=== PATIENT | male | born 1960 | race Two or more races ===

== ENCOUNTER 2020-07-13 12:28 | Emergency (ER) | payer SELFPAY ==
[2020-07-13] MEDS ORDERED: ONDANSETRON 4 MG TAB.RAPDIS PO ONE (13:33)
--- NOTE | 2020-07-13 13:35 | ER Document Report ---
ED Medical Screen (RME) - General Chief Complaint: Nausea/Vomiting Stated Complaint: NAUSEA VOMITING Time Seen by Provider: 07/13/20 13:25 Mode of Arrival: Ambulatory Information source: Patient - HPI Patient complains to provider of: Nausea, sore throat, vomiting Notes: 07/13/20 13:33 Patient with complaints of having some nausea for the last few days. He states that when he bends over he feels like he vomits a little bit and then ends up vomiting completely. Also been having a sore throat. He denies any fever. He does complain of some generalized body aches. No cough. No chest pain or shortness of breath. No prior abdominal surgeries. Patient denies smoking, drinks beer, denies drug use. No known Covid exposure. No abdominal pain cur rently. No fever. Patient also states that he noticed his urine was red but is not sure if it is from the fruit juice that he was drinking. Exam: Nontoxic, no distress. Lungs clear and equal throughout. Heart sounds normal. Mild erythema to the posterior pharynx with no unilateral swelling. No focal abdominal tenderness. An initial examination was made on the patient as part of the triage process, and it was determined a more comprehensive evaluation was necessary. Initial orders were placed and patient was transferred to another provider in the ED who assumed care and finished evaluation and plan. Physical Exam - Vital signs Vitals: Temp Pulse Resp BP Pulse Ox 98.6 F 92 16 153/93 H 99 07/13/20 12:36 07/13/20 12:36 07/13/20 12:36 07/13/20 12:36 07/13/20 12:36 Course - Vital Signs Vital signs: Temp Pulse Resp BP Pulse Ox 98.6 F 92 16 153/93 H 99 07/13/20 12:36 07/13/20 12:36 07/13/20 12:36 07/13/20 12:36 07/13/20 12:36
[2020-07-13 14:19] LABS: ABSOLUTE LYMPHOCYTES (AUTO) 0.9 10^3/uL (0.5-4.7); ABSOLUTE MONOCYTES (AUTO) 0.3 10^3/uL (0.1-1.4); ABSOLUTE NEUT (AUTO) 5.8 10^3/uL (1.7-8.2); BASOPHILS % (AUTO) 0.4 % (0-2); EOSINOPHILS % (AUTO) 0.1 % (0-6); HEMATOCRIT 48.8 % (37.9-51.0); HEMOGLOBIN 16.7 g/dL (13.5-17.0); LYMPHOCYTES % (AUTO) 12.7 % (13-45); MEAN CORPUSCULAR HEMOGLOBIN 31.7 pg (27.0-33.4); MEAN CORPUSCULAR HGB CONC 34.2 g/dL (32.0-36.0); MEAN CORPUSCULAR VOLUME 93 fl (80-97); MONOCYTES % (AUTO) 4.9 % (3-13); PLATELET COUNT 166 10^3/uL (150-450); RED BLOOD COUNT 5.27 10^6/uL (4.35-5.55); SEGMENTED NEUTROPHILS % (AUTO) 81.9 % (42-78); TOTAL CELLS COUNTED % (AUTO) 100 %
[2020-07-13 14:34] LABS: APPEARANCE,URINE CLEAR; BILIRUBIN,URINE NEGATIVE (NEGATIVE); COLOR,URINE YELLOW; GLUCOSE, URINE NEGATIVE (NEGATIVE); KETONES,URINE NEGATIVE (NEGATIVE); LEUKOCYTE ESTERASE,URINE NEGATIVE (NEGATIVE); NITRITE,URINE NEGATIVE (NEGATIVE); PROTEIN,URINE 30 mg/dL (NEGATIVE); URINE SPECIFIC GRAVITY 1.021; UROBILINOGEN,URINE NEGATIVE mg/dL (<2.0)
[2020-07-13 14:42] LABS: ALBUMIN 4.4 g/dL (3.5-5.0); ALKALINE PHOSPHATASE 47 U/L (38-126); ASPARTATE AMINO TRANSFERASE 57 U/L (17-59); BILIRUBIN,DIRECT 0.1 mg/dL (0.0-0.4); BILIRUBIN,TOTAL 1.6 mg/dL (0.2-1.3); BLOOD UREA NITROGEN 30 mg/dL (7-20); CALCIUM 11.5 mg/dL (8.4-10.2); CHLORIDE 88 mmol/L (98-107); GLUCOSE 210 mg/dL (75-110); POTASSIUM 4.2 mmol/L (3.6-5.0); TOTAL PROTEIN 7.4 g/dL (6.3-8.2)
[2020-07-13 14:51] LABS: ANION GAP 8 (5-19)
[2020-07-13 14:56] LABS: CARBON DIOXIDE 42 mmol/L (22-30)
[2020-07-13 15:46] LABS: VENOUS BLOOD BASE EXCESS 14.7 mmol/L; VENOUS BLOOD HCO3 42.4 mmol/L (20-32); VENOUS BLOOD PCO2 61.5 mmHg (35-63); VENOUS BLOOD PH 7.46 (7.30-7.42)
[2020-07-13] MEDS ORDERED: NORMAL SALINE 1000 ML 1,000 ML IV ONE (15:47)
[2020-07-13] MEDS ORDERED: MAG HYDROX/AL HYDROX/SIMETH SUSP 30 ML UDCUP PO ONE (15:47)
[2020-07-13] MEDS ORDERED: METOCLOPRAMIDE HCL ORAL SOLN 10 MG/10 ML UDCUP PO ONE (15:47)
[2020-07-13] MEDS ORDERED: LIDOCAINE 2% VISCOUS SOLN 15 ML UDCUP PO ONE (15:47)
--- NOTE | 2020-07-13 15:51 | ER Document Report ---
ED General - General Chief Complaint: Nausea/Vomiting Stated Complaint: NAUSEA VOMITING Time Seen by Provider: 07/13/20 13:25 Mode of Arrival: Ambulatory - [facility] Notes: Patient was seen and reinterviewed. History as documented by Mr. Hull was verified. Patient has had nausea and vomiting for 3 days since overindulged in alcohol over the New Year's weekend. Describes a burning sensation in his throat all the way down to his stomach consistent with an esophagitis from his repeated vomiting. Denies any hematemesis, melena, or hematochezia. Has no history of peptic ulcer disease. Drinks coffee fairly regularly. Does not use any NSAIDs. States he knows he has a history of type 2 diabetes but is not on any medication for it right now. No exposure to illness that he knows of. No real cough. Otherwise in his usual state of health. - Related Data Allergies/Adverse Reactions: No Known Allergies Allergy (Verified 07/13/20 14:53) Past Medical History - General Information source: Patient - Social History Smoking Status: Never Smoker Chew tobacco use (# tins/day): No Frequency of alcohol use: Social Drug Abuse: None Family History: Reviewed & Not Pertinent - Medical History Medical History: Other Notes: Patient reports a history of type 2 diabetes currently not on any medication. Review of Systems - Review of Systems Notes: All other systems reviewed are negative or noncontributory except as noted the present illness. Physical Exam - Vital signs Vitals: Temp Pulse Resp BP Pulse Ox 98.6 F 92 16 153/93 H 99 07/13/20 12:36 07/13/20 12:36 07/13/20 12:36 07/13/20 12:36 07/13/20 12:36 - Notes Notes: General: Well-developed well-nourished male no acute distress. Vital signs and nursing documentation are reviewed. HEENT normocephalic atraumatic. EOMI. Pharynx is minimally erythematous without any exudates or edema. ENT exam is otherwise unremarkable. Neck: Supple, nontender, trachea midline, no adenopathy. Lungs: Clear to auscultation all [place]. Heart: Regular rate and rhythm no murmur rub or gallop. Abdomen: Active bowel sounds, nondistended, soft, mild epigastric and left upper quadrant tenderness. No guarding no masses no rebound no organomegaly. Extremities: Without clubbing cyanosis or edema. Skin: Warm moist good turgor no rashes. Neuro: Alert oriented x3. No focal neuro deficits noted. Course - Re-evaluation Re-evalutation: 07/13/20 15:50 The patient has a mild metabolic alkalosis with hypochloremia which is likely due to his vomiting. I canceled his venous blood gas because his O2 sat is 99% he is in absolutely no distress. I think it is more appropriate to reexpand his volume and check his ionized calcium. He says his nausea feels somewhat better after the ondansetron. We will give him a challenge with a GI cocktail and see how he does with that and determine our path forward after we assess his response to treatment. 07/13/20 17:21 Patient was reevaluated after a liter of saline. He said he felt better. GI cocktail helped as well. I will discharge him on omeprazole and ondansetron. I encouraged him to get primary care follow-up. He said that funding is a big issue for him. I suggested the free clinic might be an alternative. He should continue the omeprazole for at least 2 weeks. We will call him with his Covid test results. - Vital Signs Vital signs: Temp Pulse Resp BP Pulse Ox 98.5 F 78 18 140/80 H 96 07/13/20 16:08 07/13/20 16:08 07/13/20 16:08 07/13/20 16:08 07/13/20 16:08 - Laboratory Results Result Diagrams: 07/13/20 14:02 07/13/20 14:02 Laboratory Results Interpreted: 07/13/20 07/13/20 07/13/20 14:02 14:02 14:02 Lymph % (Auto) 12.7 L Seg Neutrophils % 81.9 H VBG pH VBG HCO3 Chloride 88 L Carbon Dioxide 42 H* BUN 30 H Glucose 210 H Calcium 11.5 H Ionized Calcium All Total Bilirubin 1.6 H Urine Protein 30 H Urine Ascorbic Acid 40 H 07/13/20 07/13/20 15:30 15:30 Lymph % (Auto) Seg Neutrophils % VBG pH 7.46 H VBG HCO3 42.4 H Chloride Carbon Dioxide BUN Glucose Calcium Ionized Calcium All 1.34 H Total Bilirubin Urine Protein Urine Ascorbic Acid Critical Laboratory Results Reviewed: No Critical Results - Radiology Results Critical Radiology Results Reviewed: No Critical Results Discharge - Discharge Clinical Impression: Alcoholic gastritis Qualifiers: Chronicity: acute Gastritis bleeding: without bleeding Qualified Code(s): K2 9.20 - Alcoholic gastritis without bleeding Condition: Good Disposition: HOME, SELF-CARE Additional Instructions: Prescriptions for ondansetron for nausea and omeprazole for acid control have been given to you. Please pick these up and take them according to label directions. You should make an appointment to follow-up with primary care within 7 to 10 days. The free clinic may be got a good option for you. Call them and tell them them you need an ER follow-up both for your stomach and for your high blood sugar. Return to the emergency department if your symptoms worsen or if any other concerning symptoms develop. Prescriptions: Omeprazole 20 mg PO DAILY #14 tab Ondansetron [Ondansetron Odt] 8 mg PO Q6H PRN #6 tab.courtney PRN Reason: Nausea
[2020-07-13 17:33] VITALS: BP 142/82
== END 2020-07-13 17:30 | disposition home or self-care (01) ==
LOC: ER 12:28
DX: K29.20 Alcoholic gastritis without bleeding (principal); R11.2 Nausea with vomiting, unspecified; E87.3 Alkalosis; E87.8 Other disorders of electrolyte and fluid balance, not elsewhere classified; E11.9 Type 2 diabetes mellitus without complications; Z20.822 Contact with and (suspected) exposure to COVID-19
CPT/HCPCS: 99284; 96360; 36415; 87070; 87880; 83690; 85025; 87635; 80053; 81001; 82803; 82330; S0119; J3490; J7030; C9803